=== PATIENT | male | born 1985 | race Caucasian/White ===

== ENCOUNTER 2016-12-06 15:18 | Emergency (ER) | payer SELFPAY ==
--- NOTE | 2016-12-06 15:23 | EDM.PDOC ---
ED HPI GENERAL MEDICAL PROBLEM - General Chief Complaint: Upper Extremity Injury/Pain Stated Complaint: SMASHED MIDDLE FINGER TO LEFT HAND Time Seen by Provider: 12/06/16 15:23 Source of Information: Reports: Patient - History of Present Illness INITIAL COMMENTS - FREE TEXT/NARRATIVE: HISTORY AND PHYSICAL: History of present illness: []Patient was at work today he was moving a steel ladder, apparently dropped the latter crushing his third digit distal tip between cement and the latter is obvious subungual hematoma and swelling associated, no open lesion on the skin distal phalanx is reddened and swollen entire limb neurovascularly intact unaffected above the left wrist No fever nausea vomiting chills sweats No other injury occurred Review of systems: As per history of present illness and below otherwise all systems reviewed and negative. Past medical history: As per history of present illness and as reviewed below otherwise noncontributory. Surgical history: As per history of present illness and as reviewed below otherwise noncontributory. Social history: No reported history of drug or alcohol abuse. Family history: As per history of present illness and as reviewed below otherwise noncontributory. Physical exam: HEENT: Atraumatic, normocephalic, pupils reactive, negative for conjunctival pallor or scleral icterus, mucous membranes moist, throat clear, neck supple, nontender, trachea midline. Lungs: Clear to auscultation, breath sounds equal bilaterally, chest nontender. Heart: S1S2, regular, negative for clicks, rubs, or JVD. Abdomen: Soft, nondistended, nontender. Negative for masses or hepatosplenomegaly. Negative for costovertebral tenderness. Pelvis: Stable nontender. Genitourinary: Deferred. Rectal: Deferred. Extremities: Atraumatic, negative for cords or calf pain. Neurovascular unremarkable. Left upper extremity unaffected above the wrist as per history of present illness otherwise unremarkable Neuro: Awake, alert, oriented. Cranial nerves II through XII unremarkable. Cerebellum unremarkable. Motor and sensory unremarkable throughout. Exam nonfocal. Diagnostics: Left hand 3 views Therapeutics: []Keflex 500 by mouth twice a day prophylaxis #20 no refill rick hole--Third nail to relieve pressure subungual hematoma no complication no complaint, actually electrocautery was used Tetanus status is up-to-date as of 4 years ago per patient Impression: []Subungual hematoma Definitive disposition and diagnosis as appropriate pending reevaluation and review of above. Left 3rd digiti Pain Score (Numeric/FACES): 4 - Related Data Allergies Allergy/AdvReac Type Severity Reaction Status Date / Time No Known Allergies Allergy Verified 12/06/16 15:38 Home Meds: Home Meds . [No Known Home Meds] 12/06/16 [History] Review of Systems - Review of Systems Review Of Systems: ROS reveals no pertinent complaints other than HPI. ED EXAM, GENERAL - Physical Exam Exam: See Below Course - Vital Signs Last Recorded V/S: Last Vital Signs Temp 36.2 C 12/06/16 15:33 Pulse 70 12/06/16 15:33 Resp 16 12/06/16 15:33 BP 143/83 H 12/06/16 15:33 Pulse Ox 98 12/06/16 15:33 - Orders/Labs/Meds Orders: Active Orders 24 hr Category Date Time Status Hand Comp Min 3V Lt [CR] Stat Exams 12/06/16 15:22 Taken Departure - Departure Time of Disposition: 16:16 Disposition: Home, Self-Care 01 Condition: Good Clinical Impression: Subungual hematoma - Discharge Information Referrals: PCP,None [Primary Care Provider] - Forms: ED Department Discharge Additional Instructions: Bandage as needed Splint for protection and comfort Rest ice ibuprofen Follow-up with primary care in 2 weeks or occupational health The following information is given to patients seen in the emergency department who are being discharged to home. This information is to outline your options for follow-up care. We provide all patients seen in our emergency department with a follow-up referral. The need for follow-up, as well as the timing and circumstances, are variable depending upon the specifics of your emergency department visit. If you don't have a primary care physician on staff, we will provide you with a referral. We always advise you to contact your personal physician following an emergency department visit to inform them of the circumstance of the visit and for follow-up with them and/or the need for any referrals to a consulting specialist. The emergency department will also refer you to a specialist when appropriate. This referral assures that you have the opportunity for follow-up care with a specialist. All of these measure are taken in an effort to provide you with optimal care, which includes your follow-up. Under all circumstances we always encourage you to contact your private physician who remains a resource for coordinating your care. When calling for follow-up care, please make the office aware that this follow-up is from your recent emergency room visit. If for any reason you are refused follow-up, please contact the [facility] emergency department at and asked to speak to the emergency department charge nurse. - My Orders Last 24 Hours: My Active Orders 12/06/16 15:22 Hand Comp Min 3V Lt [CR] Stat - Assessment/Plan Last 24 Hours: My Active Orders 12/06/16 15:22 Hand Comp Min 3V Lt [CR] Stat
[2016-12-06 16:49] VITALS: BP 123/76
--- NOTE | 2016-12-08 15:01 | CR ---
EXAM DATE: 12/06/16 PATIENT'S AGE: 31 Patient: VIJAY OROZCO Facility: [place], [place] Site . Site : [id number] Study: XRay Extremity Left Hand [id number]/19/2017 3:52:51 PM Ordering Physician: Doctor Marshall Final Report: Indication: Pain, crushing injury Comparison: None. Findings: Soft tissue swelling is noted over the distal left 3rd phalanx. No underlying fracture, osseous abnormality or joint abnormality is identified of the left hand and bony mineralization is normal. Impression: Soft tissue injury but no underlying fracture/dislocation left hand. Dictated by Geovanna Hernandez MD @ Dec 06 2016 3:59PM (Electronic Signature) Report Signed by Proxy. LEFTY
== END 2016-12-06 16:45 | disposition home or self-care (01) ==
LOC: MW.ED 15:18
DX: S60.132A Contusion of left middle finger with damage to nail, initial encounter (principal); W23.1XXA Caught, crushed, jammed, or pinched between stationary objects, initial encounter
CPT/HCPCS: 11740; 73130-26-LT; 73130-LT; 99282; 99283